=== PATIENT | male | born 1955 | race African-American/Black ===

== ENCOUNTER 2022-07-26 08:57 | Observation (INO) | payer MEDICARE ==
[2022-07-26] MEDS ORDERED: Ondansetron PF 4 MG/2 ML Vial IVP PRN (09:36)
[2022-07-26] MEDS ORDERED: hydrALAZINE 20 MG/ML VIAL SLOW IVP PRN (09:36)
[2022-07-26] MEDS ORDERED: Acetaminophen 325 MG TAB PO PRN (09:36)
[2022-07-26] MEDS ORDERED: Acetaminophen 650 MG Suppository PR PRN (09:36)
[2022-07-26] MEDS ORDERED: Ondansetron ODT 4 MG TAB PO PRN (09:36)
[2022-07-26 10:15] VITALS: BMI 23.6
[2022-07-26] MEDS ORDERED: tiZANidine HCl 4 MG TAB PO PRN (15:22)
[2022-07-26] MEDS ORDERED: busPIRone HCl 15 MG TAB PO PRN (15:22)
[2022-07-26] MEDS ORDERED: Atorvastatin Calcium 40 MG TAB PO SCH (21:00)
[2022-07-26] MEDS ORDERED: ALPRAZolam 0.5 MG TAB PO SCH (21:00)
[2022-07-27 04:34] LABS: #Eosinphils 0.1 10x3/uL (0.0-0.5); #Monocytes 0.4 10x3/uL (0.0-1.1); #Neutrophils 2.4 10x3/uL (1.5-8.4); %Basophils 0.4 % (0.0-2.0); %Eosinophils 1.9 % (0.0-6.0); %Lymphocytes 37.9 % (18.0-47.0); %Monocytes 9.3 % (0.0-10.0); %Neutrophils 50.3 % (40.0-75.0); Hemoglobin 13.6 g/dL (13.5-17.5); Mean Corpuscular HGB CONC 34.2 g/dL (32.0-36.0); Mean Corpuscular Hemoglobin 29.3 pg (27.0-33.0); Mean Corpuscular Volume 85.8 fl (81.2-95.1); Mean Platelet Volume 10.7 fl (7.4-10.4); Platelet Count 170 10x3/uL (150-450); RBC Distribution Width 12.6 % (11.5-14.5); Red Blood Cell (RBC) Count 4.64 10x6/uL (4.32-5.72); White Blood Cell (WBC) Count 4.8 10x3/uL (3.5-10.5)
[2022-07-27 04:52] LABS: Anion Gap 12 mmol/L (10-20); BUN (Urea Nitrogen) 10 mg/dL (8.4-25.7); Calc. Creatinine Clearance 113 mL/min (70-130); Carbon Dioxide 25 mmol/L (23-31); Chloride 109 mmol/L (98-107); Cholesterol 131 mg/dl (< 200 Desired); Estimated GFR 100; Glucose 101 mg/dL (80-115); HDL Cholesterol 44 mg/dL (>60 Neg Risk); LDL Cholesterol, Calculated 73 mg/dL; Potassium 3.7 mmol/L (3.5-5.1); Sodium 142 mmol/L (136-145); Triglycerides 68 mg/dL (Less than 150)
[2022-07-27] MEDS ORDERED: Aspirin 81 mg Enteric Coated Tablet PO SCH (09:00)
[2022-07-27] MEDS ORDERED: Tamsulosin HCl 0.4 MG CAP PO SCH (09:00)
[2022-07-27] MEDS ORDERED: HYDROcodone/Acetaminophen 10/325 mg Tablet PO PRN (09:54)
[2022-07-27 10:01] VITALS: BP 124/75; TEMP 98.2
== END 2022-07-27 13:15 | disposition home or self-care (01) ==
LOC: INTOOBSV 08:57 → CSHTELE 08:57
PROVIDERS: ADMIT Internal Medicine; ATTEND Family Medicine
DX: R53.1 Weakness (principal); R47.81 Slurred speech; N40.0 Benign prostatic hyperplasia without lower urinary tract symptoms; M50.00 Cervical disc disorder with myelopathy, unspecified cervical region; M50.10 Cervical disc disorder with radiculopathy, unspecified cervical region; G95.9 Disease of spinal cord, unspecified; I10 Essential (primary) hypertension; E78.5 Hyperlipidemia, unspecified; H40.9 Unspecified glaucoma; G62.9 Polyneuropathy, unspecified; G89.4 Chronic pain syndrome; Z79.82 Long term (current) use of aspirin; Z79.899 Other long term (current) drug therapy
CPT/HCPCS: 70551; 80048; 80061; 85025; 93306; 93880; 96372; G0378; J1650

== ENCOUNTER 2024-05-11 23:19 | Emergency (ER) | payer MEDICARE ==
[2024-05-11 23:56] LABS: #Basophils 0.02 10x3/uL (0.0-0.2); #Monocytes 0.66 10x3/uL (0.0-1.1); #Neutrophils 2.72 10x3/uL (1.5-8.4); %Basophils 0.4 % (0.0-2.0); %Eosinophils 1.8 % (0.0-6.0); %Lymphocytes 35.8 % (18.0-47.0); %Monocytes 12.1 % (0.0-10.0); %Neutrophils 49.7 % (40.0-75.0); Hematocrit 41.5 % (38.8-50.0); Hemoglobin 13.6 g/dL (13.5-17.5); Mean Corpuscular HGB CONC 32.8 g/dL (32.0-36.0); Mean Corpuscular Hemoglobin 28.6 pg (27.0-33.0); Mean Corpuscular Volume 87.4 fL (81.2-95.1); Mean Platelet Volume 10.9 fL (7.4-10.4); Platelet Count 178 10x3/uL (150-450); RBC Distribution Width 12.4 % (11.5-14.5); Red Blood Cell (RBC) Count 4.75 10x6/uL (4.32-5.72); White Blood Cell (WBC) Count 5.5 10x3/uL (3.5-10.5)
[2024-05-12 00:06] LABS: Anion Gap 14 mmol/L (10-20); BUN (Urea Nitrogen) 10 mg/dL (8.4-25.7); Calc. Creatinine Clearance 0 mL/min (70-130); Carbon Dioxide 23 mmol/L (23-31); Chloride 106 mmol/L (98-107); Estimated GFR 83; Glucose 101 mg/dL (80-115); Magnesium 2.1 mg/dL (1.6-2.6); Sodium 139 mmol/L (136-145)
[2024-05-12 00:14] LABS: Troponin I Less than 0.010 ng/mL (< 0.028)
== END 2024-05-12 01:27 | disposition home or self-care (01) ==
LOC: CSHERS 23:19
DX: I10 Essential (primary) hypertension (principal); R00.2 Palpitations; Z87.891 Personal history of nicotine dependence
CPT/HCPCS: 36415; 80048; 83735; 84484; 85025; 93005; 99285